=== PATIENT | male | born 1965 | race African-American/Black ===

== ENCOUNTER 2023-04-13 23:47 | Emergency (ER) | payer BC, OTHER ==
[~2023-04-13] VITALS: Ht 182.9 cm; Wt 97.5 kg
--- NOTE | 2023-04-14 00:23 | NUR ---
BIBSELF FROM HOME C/O R LEG SWELLING X1DAY. HX DM. PT AAOX4, IN NAD. PLACED IN BED, VITALS CHECKED. SON AT BEDSIDE.
[2023-04-14] MEDS ORDERED: CEFTRIAXONE 1GM BAG (ER ONLY) 50 ML IV ONE (00:35)
--- NOTE | 2023-04-14 00:45 | NUR ---
20GA TO LEFT HAND ESTABLISHED; BLOOD CXs AND BLOOD WORK COLLECTED, GIVEN TO VALET
[2023-04-14] MEDS: CEFTRIAXONE 1GM BAG (ER ONLY) 1 GM/50 ML PIGGYBACK IV ONE (00:52)
--- NOTE | 2023-04-14 01:00 | NUR ---
X-RAY AT BEDSIDE
--- NOTE | 2023-04-14 01:15 | NUR ---
VENOUS DUPLEX AT BEDSIDE
[2023-04-14 01:16] LABS: BASOPHILS # (AUTO) 0.1 K/uL (0.0-0.2); BASOPHILS % (AUTO) 1.2 % (0.0-2.0); EOSINOPHILS % (AUTO) 4.6 % (0.0-6.0); HEMATOCRIT 30 % (39-51); HEMOGLOBIN 9.3 g/dL (13.5-17.5); LYMPHOCYTES # (AUTO) 2.1 K/uL (0.8-4.8); LYMPHOCYTES % (AUTO) 18.5 % (20.0-44.0); MEAN CORPUSCULAR HGB CONC 31 g/dl (31.0-36.0); MEAN CORPUSCULAR VOLUME 85 fL (80-96); MONOCYTES % (AUTO) 8.4 % (2.0-12.0); NEUTROPHILS # (AUTO) 7.6 K/uL (1.8-8.9); NEUTROPHILS % (AUTO) 67.3 % (43.0-81.0); PLATELET COUNT (AUTO) 347 K/uL (150-450); RED BLOOD CELL COUNT(AUTO) 3.55 MIL/uL (4.5-6.0); WHITE BLOOD COUNT (AUTO) 11.3 K/uL (4.3-11.0)
[2023-04-14 01:21] LABS: CALCIUM, SERUM 9.3 mg/dL (8.5-10.1); CARBON DIOXIDE 24 mmol/L (21-32); CHLORIDE 108 mmol/L (98-107); CREATININE 2.6 mg/dL (0.6-1.3); GLUCOSE 195 mg/dL (74-106); POTASSIUM 4.6 mmol/L (3.5-5.1); SODIUM SERUM 141 mmol/L (136-145); UREA NITROGEN, BLOOD 38 mg/dL (7-18)
--- NOTE | 2023-04-14 01:32 | NUR ---
CRITICAL CALLED IN BY LAB, LACTIC 2.0. DR. PALACIOS, DO NOTIFIED.
[2023-04-14 01:34] LABS: ALANINE AMINOTRANSFERASE 33 U/L (12-78); ALBUMIN 2.9 g/dL (3.4-5.0); ALKALINE PHOSPHATASE 141 U/L (46-116); ASPARTATE AMINOTRANSFERASE 22 U/L (15-37); BILIRUBIN,DIRECT 0.1 mg/dL (0.0-0.2); BILIRUBIN,TOTAL 0.3 mg/dL (0.2-1.0); TOTAL PROTEIN, SERUM 7.6 g/dL (6.4-8.2)
[2023-04-14] MEDS ORDERED: CEPH500T PO (03:47)
[2023-04-14 03:56] VITALS: BP 169/81; TEMP 98.3
--- NOTE | 2023-04-14 03:56 | NUR ---
Patient discharged to home in stable condition. Written and verbal after care instructions given. Patient verbalizes understanding of instruction.IV removed. Catheter intact and site benign. Pressure and 4x4 applied to site. No bleeding noted.
== END 2023-04-14 04:00 | disposition home or self-care (01) ==
LOC: ER 23:59
DX: E11.621 Type 2 diabetes mellitus with foot ulcer (principal); I10 Essential (primary) hypertension; Z79.899 Other long term (current) drug therapy
CPT/HCPCS: 99285; 96365; 93971; 73630; 85025; 80048; 87040 ×2; 83605; 80076; 36415; 85730; J0696